=== PATIENT | female | born 1990 | race African-American/Black ===

== ENCOUNTER 2020-12-03 21:11 | Emergency (ER) | payer OTHER ==
[~2020-12-03] VITALS: Ht 162.6 cm; Wt 63.6 kg
[2020-12-03] MEDS ORDERED: IBUPROFEN 600 MG TABLET PO ONE (22:15)
[2020-12-03] MEDS ORDERED: BACITRACIN 0.9 GM PACKET OINTMENT TP ONE (22:15)
[2020-12-03] MEDS ORDERED: ACETAMINOPHEN 500 MG TABLET PO ONE (22:15)
[2020-12-03] MEDS ORDERED: PERTUSS(ACELL),DIPH,TET VAC/PF 0.5 ML SYRINGE IM. ONE (22:15)
[2020-12-03 23:34] VITALS: BP 135/77
== END 2020-12-04 01:46 | disposition home or self-care (01) ==
LOC: EMS 21:14
DX: T25.222A Burn of second degree of left foot, initial encounter (principal); T25.221A Burn of second degree of right foot, initial encounter; F17.210 Nicotine dependence, cigarettes, uncomplicated; X08.8XXA Exposure to other specified smoke, fire and flames, initial encounter; Y93.G3 Activity, cooking and baking; Y92.89 Other specified places as the place of occurrence of the external cause; Y99.8 Other external cause status
CPT/HCPCS: 16020; 90471; 90715; 99283